=== PATIENT | male | born 1990 | race Hispanic/Latino ===

== ENCOUNTER 2018-10-02 14:51 | Inpatient (IN) | payer SELFPAY ==
[~2018-10-02 14:51] MED LIST: ISOVUE-370 76%-LOCM 1 ML ONE; Ondansetron PF 4 MG/2 ML Vial ONE; PROPOFOL 200 MG/20 ML VIAL ONE; Succinylcholine Chloride 20 MG/ML 10 ml SYRINGE FS ONE
--- NOTE | 2018-10-02 15:52 | RAD ---
CHEST ONE VIEW 10/02/18 HISTORY: Chest pain. COMPARISON: None. FINDINGS: Lungs are clear. No pneumothorax or effusion. The cardiac silhouette and mediastinal contours are nor mal. IMPRESSION: No acute intrathoracic abnormality. POS: [facility]
[2018-10-02 16:10] LABS: #Lymphocytes 3.6 thou/uL (1.20-3.40); #Monocytes 1.7 thou/uL (0.11-0.59); #Neutrophils 10.9 thou/uL (1.40-6.50); %Basophils 0.3 % (0.0-1.0); %Eosinophils 0.2 % (0.0-10.0); %Lymphocytes 22.2 % (21.0-51.0); %Monocytes 10.7 % (0.0-10.0); %Neutrophils 66.6 % (42.0-75.0); Mean Corpuscular HGB CONC 32.8 g/dL (32.0-36.0); Mean Corpuscular Hemoglobin 26.5 pg (27.0-31.0); Mean Corpuscular Volume 80.9 fL (78.0-98.0); Mean Platelet Volume 7.8 fL (7.4-10.4); Platelet Count 233 thou/uL (130-400); Red Blood Cell (RBC) Count 4.89 mill/uL (4.70-6.10); White Blood Cell (WBC) Count 16.3 thou/uL (4.8-10.8)
[2018-10-02] MEDS ORDERED: Ketorolac Tromethamine 30 MG/ML VIAL ONE (16:30)
--- NOTE | 2018-10-02 16:46 | CT ---
CONTRAST ENHANCED CT IMAGES ABDOMEN AND PELVIS 10/02/18 HISTORY: Fever, abdominal pain, urosepsis. Contrast enhanced CT images of the abdomen and pelvis is obtained. The lung bases are unremarkable. No evidence of free intraperitoneal air seen. There is hepatic steatosis seen. The gallbladder is unremarkable. Pancreas and adrenal glands unremarkable. The right kidney is unremarkable. The left kidney is markedly dilated with what appears to be congeni aj type UPJ obstruction. There is a cluster of large calculi in the posterior aspect of the renal pelvis. Three dimensional me asurements measure 11 x 13 x 21 mm. No evidence of obstructing renal calculi seen. The ureters are decompressed. No dilated loops of small bowel or colon seen. The urinary bladder is unremarkable. Multilevel lumbar congenitally short pedicles and facet hypertrophy is also present. This results in multilevel lumbar spinal stenosis. IMPRESSION: Marked left sided hydronephrosis. 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 POS: [facility]
[2018-10-02 17:52] LABS: Bilirubin Negative (Negative); Blood, Urine Moderate (Negative); Clarity CLOUDY (Clear); Glucose, Urine (Dipstick) Negative (Negative); Leukocyte Large (Negative); Nitrite Negative (Negative); Protein, Urine (Dipstick) 100 mg/dL (Neg-Trace); Specific Gravity, Urine 1.013 (1.002-1.036); Urobilinogen 0.2 mg/dL (0.2-1.0); pH, Urine 5.5 (5.0-9.0)
[2018-10-02 18:03] LABS: Bacteria/HPF 1+ HPF (None Seen); Hyaline Casts/LPF 0-3 HYALINE CAST LPF (0-3 Hyaline); RBC/HPF 0-3 HPF (0-3); Squamous Epithelial None Seen HPF (0-3); Yeast-AUWi Flag 4.4 (0-25.0)
[2018-10-02] MEDS ORDERED: Morphine 2 MG/ML SYRINGE SLOW IVP PRN (18:51)
[2018-10-02] MEDS ORDERED: Sodium Chloride 0.45% 1,000 ML IV SCH (19:00)
[2018-10-02] MEDS ORDERED: Piperacillin/Tazobactam 3.375 GM in Sodium Chloride 0.9% 100 ML IVPB SCH (20:00)
[2018-10-02 20:09] VITALS: BMI 37.8
[2018-10-02] MEDS ORDERED: Iothalamate Meglumine 60% 50 ML VIAL FS ONE (21:46)
[2018-10-02] MEDS ORDERED: Fentanyl 100 MCG/2 ML VIAL ONE (21:50)
--- NOTE | 2018-10-02 23:24 | RAD ---
INTRAOPERATIVE FLUOROSCOPY 10/02/18 HISTORY: Stent placement. FINDINGS: Twelve fluoroscopic views demonstrate placement of a left ureteral stent. IMPRESSION: Fluoroscopy as above. POS: [facility]
[2018-10-02] MEDS ORDERED: HYDROcodone/Acetaminophen 5/325 mg Tablet PO PRN (23:57)
[2018-10-03] MEDS: Sodium Chloride 0.9% 1,000 ML IV SCH ×2 (00:36→11:55)
--- NOTE | 2018-10-03 01:28 | OP ---
DATE OF PROCEDURE: 10/02/2018 PREOPERATIVE DIAGNOSES: Left ureteropelvic junction obstruction, urinary tract infection. POSTOPERATIVE DIAGNOSES: Left ureteropelvic junction obstruction, urinary tract infection. PROCEDURE PERFORMED: Cystoscopy, left double-J stent placement. ANESTHESIA: General. INDICATIONS FOR PROCEDURE: Mr. Sloan is a 28-year-old gentleman who presented with a 3-month history of intermittent fevers and body aches. He had an elevated white blood cell count of 16,000. Urinalysis demonstrated bacteria. 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 Because of the potential for left pyonephrosis, he was taken to the operating room for left renal drainage. DETAILS OF PROCEDURE: The patient was given general anesthesia and IV antibiotics, sterilely prepped and draped in lithotomy position. He had some meatal stenosis requiring dilation with sequential sounds prior to passage of the cystoscope. The cystoscope was passed into the bladder. The bladder was examined in its entirety. There were no mucosal lesions noted. The ureteral orifice appeared normal. A guidewire was passed to the left renal collecting system and then a Pollack catheter was passed over the guidewire. The guidewire was removed and over 300 mL was drained from his kidney by aspiration through the catheter. After this was completed, a guidewire was passed back up into the left kidney and the Pollack catheter was removed. A double-J stent was passed over the guidewire and coiled in the left renal pelvis cystoscopically and fluoroscopically. The patient tolerated the procedure well. The cystoscope was removed. String was left intact and taped to the dorsal aspect of the penis. He was transferred from the operating room to the recovery room in stable condition. COMPLICATIONS: None. ESTIMATED BLOOD LOSS: Minimal. PLAN: 1. Stent removal in approximately one week. 2. Two weeks of antibiotic therapy . Job ID: [id number]
--- NOTE | 2018-10-03 01:43 | CON ---
DATE OF CONSULTATION: 10/02/2018 REASON FOR CONSULTATION: Left hydronephrosis, urinary tract infection. HISTORY OF PRESENT ILLNESS: Mr. Sloan is a 28-year-old gentleman who was seen at an outside facility, noted to have a febrile UTI. He was transferred to [facility] for further care. On evaluation in the emergency room at [facility], a CT scan was performed. CT scan demonstrates a hydronephrotic right kidney consistent with a UPJ obstruction along with some lower pole stones. The kidney is quite hydronephrotic. The right side is normal. The ureters on both the right and left sides are normal. The patient has no prior urologic history. He denies any prior medical problems. He does state that he has had fevers off and on for the last three months. He will typically go three or four days without fever and then have fever for at least a day or so. When he has a fever, he also has joint aches and headaches. He denies a change in his bowel pattern. He states when he is febrile, his urine becomes darker and smells poorly. He has had some left-sided lower quadrant pain, but nothing severe. He finally presented today for evaluation into the medical facility. PAST MEDICAL HISTORY: No chronic medical problems. PAST SURGICAL HISTORY: None. MEDICATIONS: No chronic medications. ALLERGIES: NO KNOWN DRUG ALLERGIES. SOCIAL HISTORY: He does not smoke. He does not use drugs. He is not employed. He lives with his girlfriend and their two kids. He drinks alcohol occasionally and only on a social basis. REVIEW OF SYSTEMS: RESPIRATORY: No shortness of breath. CARDIOVASCULAR: Denies chest pain or palpitations. GASTROINTESTINAL: Denies chronic constipation, diarrhea. GENITOURINARY: Please see history of present illness. PHYSICAL EXAMINATION: VITAL SIGNS: Temperature 99.1, pulse 101, O2 saturation 99%, blood pressure 135/77. LABORATORY DATA: White count 16.3, hemoglobin 13.0, hematocrit 39.5, platelets 233. Urine demonstrates 1+ bacteria, moderate blood, and otm-kxzjxdml-vj-count white cells. Chemistry; sodium 135, potassium 3.8, chloride 100, CO2 22, BUN 12, creatinine 1.1, glucose 113, bilirubin 1.3. CT scan, marked left hydronephrosis with dilated renal pelvis. Normal ureter, left side. Right side, normal. Stones, lower pole of left kidney, approximately 1 cm in size. IMPRESSION: This patient has findings of a congenital left ureteropelvic junction obstruction. He has been completely asymptomatic throughout his life. He has now been having fevers off and on for a month. His urinalysis did suggest urinary tract infection. He has no localizing signs to the left flank, but the kidney should be drained in case there is infected urine there. This is only a short-term solution. Ultimately, he would require a surgical therapy for ureteropelvic junction reconstruction. With drainage some patients will do fine with the temporary stenting and certainly this is the treatment of choice at this time when he potentially has a urinary tract infection. PLAN: 1. Cystoscopy, left double-J stent placement. 2. Three weeks of culture-specific antibiotic therapy. Job ID: [id number]
[2018-10-03] MEDS: Piperacillin/Tazobactam 3.375 GM in Sodium Chloride 0.9% 100 ML IVPB SCH ×4 (02:10→20:27)
--- NOTE | 2018-10-03 04:17 | HP ---
CHIEF COMPLAINT: Fever. HISTORY OF PRESENT ILLNESS: Mr. Sloan is a 28-year-old male, who was initially seen in [facility], diagnosed with sepsis and sent to [facility] in [place] for further management. The patient reports fever for 2 months, occurs intermittently, usually 2 days on and 2 days off with throbbing headache in the back of his neck, 8/10, and malodorous dark urine. The patient denied any dysuria, cough, congestion, or sick contacts. When he arrived in [place], Dr. Hankins, ER physician ordered a CAT scan to further evaluate urinary symptoms, urosepsis, which showed right kidney unremarkable. Left kidney markedly dilated with what appears to be a congenital type UPJ obstruction, cluster of large calculi in the posterior aspect of the renal pelvis. Three dimensional measurements 11 x 13 x 21 mm. Impression was marked left-sided hydronephrosis, findings associated with left UPJ type chronic obstruction of the left collecting system and kidney. Urologist was contacted and reports that he would take patient to the OR for cystoscopy and placement of stent. The patient was given Rocephin in the outlying ER and Zosyn in this ED, and admitted to the observation unit for further management. PAST MEDICAL HISTORY: None. PAST SURGICAL HISTORY: None. PSYCH HISTORY: Denies. SOCIAL HISTORY: Drinks socially. Denies drug use. Denies smoking history. Lives at home with his family. ALLERGIES: NONE. CURRENT MEDICATIONS: None. REVIEW OF SYSTEMS: CONSTITUTIONAL: The patient denies chills. Reports fever. EYES: Denies any eye pain or vision changes. ENT: Denies rhinorrhea or sore throat. CARDIOVASCULAR: palpitations. RESPIRATORY: Denies cough or shortness of breath. GI: Denies abdominal pain. Denies nausea, vomiting, diarrhea, or constipation. : Reports a malodorous dark urine. Historian denies dysuria or hematuria. MUSCULOSKELETAL: Denies back pain, fall, injury, neck pain, skin rash, or skin changes. NEUROLOGIC: Does report a headache. PHYSICAL EXAMINATION: VITAL SIGNS: Blood pressure 142/82, pulse is 100, respirations 16, temp 99.3, pulse ox 97% on room air. CONSTITUTIONAL: The patient appears nontoxic. He is oriented to person, place, and time. HEENT: Head is atraumatic and normocephalic. Eyes, normal eyelid inspection. Pupils are equally round and reactive to light. ENT; mouth exam is normal. Mucous membranes are moist. NECK: Normal range of motion. No tenderness. RESPIRATORY/CHEST: Breath sounds are clear. No findings of respiratory distress. CARDIOVASCULAR: Regular heart rate and rhythm. Heart sounds are normal. ABDOMEN: Mild left lower quadrant pain on palpation. Bowel sounds are heard. No peritoneal signs. BACK: Normal inspection. Normal range of motion. No tenderness. EXTREMITIES: Upper extremity, normal inspection. Normal range of motion. Radial pulse equal bilaterally. Lower extremity, normal range of motion. Motor strength is normal. Pedal pulses equal bilaterally. NEURO: The patient is oriented to person, place, and time. Speech is normal. SKIN: Normal and dry in color. PSYCH: Normal affect. PERTINENT LABORATORY DATA: White blood cell count 16.3, hemoglobin 13, hematocrit 39.5, and platelet count 233. Urine positive for protein, blood, leukocyte esterase, greater than 50 white blood cell count, bacteria +1. Sodium 135, potassium 3.8, BUN is 12, gap is 17, creatinine 1.10, estimated GFR at 79, glucose 113, lactic acid 1.2. AST unremarkable. PLAN AND ASSESSMENT: 1. UPJ chronic obstruction, left-sided hydronephrosis. Dr. Donahue has been consulted. Plan for cystoscopy. 2. We will continue the Rocephin IV piggyback. 3. Leukocytosis, see above. 4. Deep venous thrombosis and gastrointestinal prophylaxis will be started. 5. Hospital course will be dependent on clinical findings. Job ID: [id number]
[2018-10-03 05:09] LABS: #Lymphocytes 2.7 thou/uL (1.20-3.40); #Monocytes 1.5 thou/uL (0.11-0.59); #Neutrophils 10.6 thou/uL (1.40-6.50); %Basophils 0.3 % (0.0-1.0); %Eosinophils 0.1 % (0.0-10.0); %Lymphocytes 18.4 % (21.0-51.0); %Monocytes 10.1 % (0.0-10.0); %Neutrophils 71.1 % (42.0-75.0); Hemoglobin 12.6 g/dL (14.0-18.0); Mean Corpuscular HGB CONC 33.1 g/dL (32.0-36.0); Mean Corpuscular Hemoglobin 26.5 pg (27.0-31.0); Mean Corpuscular Volume 80.2 fL (78.0-98.0); Mean Platelet Volume 7.6 fL (7.4-10.4); Platelet Count 223 thou/uL (130-400); RBC Distribution Width 12.8 % (11.5-14.5); Red Blood Cell (RBC) Count 4.77 mill/uL (4.70-6.10); White Blood Cell (WBC) Count 14.9 thou/uL (4.8-10.8)
[2018-10-03 05:27] LABS: ALT (SGPT) 41 U/L (8-55); AST (SGOT) 26 U/L (5-34); Albumin 3.7 g/dL (3.5-5.0); Alkaline Phosphatase 50 U/L (40-150); Anion Gap 15 mmol/L (10-20); BUN (Urea Nitrogen) 13 mg/dL (8.9-20.6); Bilirubin, Total 1.2 mg/dL (0.2-1.2); Calc. Creatinine Clearance 174 mL/min (70-130); Calcium 8.8 mg/dL (7.8-10.44); Carbon Dioxide 20 mmol/L (22-29); Chloride 104 mmol/L (98-107); Estimated GFR-MDRD 83; Globulin 4.1 g/dL (2.4-3.5); Glucose 104 mg/dL (70-105); Protein, Total 7.8 g/dL (6.0-8.3); Sodium 135 mmol/L (136-145)
--- NOTE | 2018-10-03 16:02 | PDOC.PN ---
- Subjective Encounter Start Date: 10/03/18 Encounter Start Time: 16:00 Patient lying in bed, he reports feeling better, pain improved, but still having fevers with slight tachycardia. He denies chest pain, shortness of breath , n/v/d. - Objective MAR Reviewed: Yes Vital Signs & Weight: Vital Signs (12 hours) Temp Pulse Resp BP Pulse Ox 10/03/18 14:30 99.8 F H 109 H 18 111/74 94 L 10/03/18 11:10 100.2 F H 107 H 22 H 135/102 H 97 10/03/18 07:09 98.1 F 106 H 15 136/84 97 Weight Weight 263 lb 8 oz I&O: 10/02/18 10/03/18 10/04/18 06:59 06:59 06:59 Intake Total 1538 Output Total 750 650 Balance 788 -650 Result Diagrams: 10/03/18 04:57 10/03/18 04:57 Radiology Reviewed by me: Yes Phys Exam - Physical Examination Constitutional: NAD HEENT: PERRLA, moist MMs, oral pharynx no lesions Neck: no nodes, no JVD, supple Respiratory: no wheezing, clear to auscultation bilateral Cardiovascular: RRR, no significant murmur Gastrointestinal: soft, no distention, positive bowel sounds Musculoskeletal: no edema, pulses present Neurological: non-focal, moves all 4 limbs Lymphatic: no nodes Psychiatric: normal affect, A&O x 3 Skin: no rash, cap refill <2 seconds Dx/Plan (1) Hydronephrosis Code(s): N13.30 - UNSPECIFIED HYDRONEPHROSIS Status: Acute (2) UTI (urinary tract infection) Status: Acute (3) Sepsis Code(s): A41.9 - SEPSIS, UNSPECIFIED ORGANISM Status: Acute - Plan cont current plan of care, continue antibiotics * Continue IV abx at this time, await culture results * Patient continuing to have fevers with tachycardia and elevated white count * Pain management * Monitor vitals, bmp and CBC * Tylenol for fevers
[2018-10-03] MEDS ORDERED: Acetaminophen 325 MG TAB PO PRN (16:03)
[2018-10-04] MEDS: Sodium Chloride 0.9% 1,000 ML IV SCH ×4 (00:02→19:02)
[2018-10-04] MEDS: Piperacillin/Tazobactam 3.375 GM in Sodium Chloride 0.9% 100 ML IVPB SCH ×4 (02:02→20:13)
[2018-10-04 08:26] LABS: #Basophils 0.1 thou/uL (0.0-0.2); #Eosinphils 0.1 thou/uL (0.0-0.7); #Lymphocytes 2.9 thou/uL (1.20-3.40); #Neutrophils 9.8 thou/uL (1.40-6.50); %Basophils 0.4 % (0.0-1.0); %Eosinophils 0.9 % (0.0-10.0); %Lymphocytes 20.8 % (21.0-51.0); %Monocytes 7.1 % (0.0-10.0); %Neutrophils 70.8 % (42.0-75.0); Hemoglobin 12.8 g/dL (14.0-18.0); Mean Corpuscular HGB CONC 31.8 g/dL (32.0-36.0); Mean Corpuscular Hemoglobin 24.9 pg (27.0-31.0); Mean Corpuscular Volume 78.2 fL (78.0-98.0); Platelet Count 287 thou/uL (130-400); RBC Distribution Width 12.8 % (11.5-14.5); Red Blood Cell (RBC) Count 5.16 mill/uL (4.70-6.10); White Blood Cell (WBC) Count 13.9 thou/uL (4.8-10.8)
[2018-10-04 08:51] LABS: ALT (SGPT) 76 U/L (8-55); AST (SGOT) 42 U/L (5-34); Alkaline Phosphatase 57 U/L (40-150); Anion Gap 13 mmol/L (10-20); BUN (Urea Nitrogen) 11 mg/dL (8.9-20.6); Bilirubin, Total 0.9 mg/dL (0.2-1.2); Calc. Creatinine Clearance 207 mL/min (70-130); Calcium 9.4 mg/dL (7.8-10.44); Carbon Dioxide 23 mmol/L (22-29); Chloride 103 mmol/L (98-107); Estimated GFR-MDRD Greater than 90; Globulin 4.7 g/dL (2.4-3.5); Glucose 105 mg/dL (70-105); Potassium 3.7 mmol/L (3.5-5.1); Protein, Total 8.7 g/dL (6.0-8.3); Sodium 135 mmol/L (136-145)
--- NOTE | 2018-10-04 16:22 | PDOC.PN ---
- Subjective Encounter Start Date: 10/04/18 Encounter Start Time: 16:21 Patient lying in bed, he denies chest pain, shortness of breath. He continues on IV zosyn and tolerating well. - Objective MAR Reviewed: Yes Vital Signs & Weight: Vital Signs (12 hours) Temp Pulse Resp BP Pulse Ox 10/04/18 12:32 98.5 F 87 18 146/88 H 96 10/04/18 08:00 97 10/04/18 07:53 98.2 F 102 H 18 130/91 H 97 Weight Weight 263 lb 8 oz I&O: 10/03/18 10/04/18 10/05/18 06:59 06:59 07:59 Intake Total 1538 1778 Output Total 750 650 Balance 788 1128 Result Diagrams: 10/04/18 07:57 10/04/18 07:57 Radiology Reviewed by me: Yes Phys Exam - Physical Examination Constitutional: NAD HEENT: PERRLA, moist MMs, oral pharynx no lesions Neck: no nodes, supple Respiratory: no wheezing, clear to auscultation bilateral Cardiovascular: RRR, no significant murmur Gastrointestinal: soft, non-tender, positive bowel sounds Musculoskeletal: no edema, pulses present Neurological: non-focal, moves all 4 limbs Lymphatic: no nodes Psychiatric: normal affect, A&O x 3 Skin: no rash, cap refill <2 seconds Dx/Plan (1) Hydronephrosis Code(s): N13.30 - UNSPECIFIED HYDRONEPHROSIS Status: Acute (2) UTI (urinary tract infection) Status: Acute (3) Sepsis Code(s): A41.9 - SEPSIS, UNSPECIFIED ORGANISM Status: Acute - Plan cont current plan of care, continue antibiotics * Patient febrile last night, whit e count trending down 13.9 * Continue IV zosyn * Urine cultures showing e coli * Monitor vitals and labs, recheck CBC in am * If patient remains afebrile for 24 hours may be discharged home on oral abx
[2018-10-05] MEDS: Piperacillin/Tazobactam 3.375 GM in Sodium Chloride 0.9% 100 ML IVPB SCH ×2 (01:21→08:35)
[2018-10-05] MEDS: Sodium Chloride 0.9% 1,000 ML IV SCH ×2 (01:24→12:05)
[2018-10-05 06:40] LABS: #Basophils 0.1 thou/uL (0.0-0.2); #Eosinphils 0.4 thou/uL (0.0-0.7); #Lymphocytes 3.6 thou/uL (1.20-3.40); #Monocytes 0.8 thou/uL (0.11-0.59); #Neutrophils 5.6 thou/uL (1.40-6.50); %Basophils 0.7 % (0.0-1.0); %Eosinophils 3.6 % (0.0-10.0); %Lymphocytes 34.5 % (21.0-51.0); %Monocytes 7.4 % (0.0-10.0); %Neutrophils 53.8 % (42.0-75.0); Hemoglobin 13.2 g/dL (14.0-18.0); Mean Corpuscular HGB CONC 31.5 g/dL (32.0-36.0); Mean Corpuscular Hemoglobin 24.9 pg (27.0-31.0); Platelet Count 310 thou/uL (130-400); Red Blood Cell (RBC) Count 5.31 mill/uL (4.70-6.10); White Blood Cell (WBC) Count 10.4 thou/uL (4.8-10.8)
[2018-10-05 08:03] VITALS: BP 132/80; TEMP 98.3
--- NOTE | 2018-10-05 09:42 | PDOC.EVN ---
Event Note - Event Note Event Note: Reviewed the case with Ronald. Reviewed the record and examined patient. 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 He has had a temporary stent placed. Urine cultures grew E. coli and blood cultures are negative. Sensitive to quinolones. He currently has no overt pain and very minimal TTP in the LLQ. VS normal. OK to DC with oral quinolone and follow up with Urology to have stent removed in 5-7 days. He will need to stay on abx until well after the stent is removed. Also discussed his hepatic steatosis and liver enzymes. He was encouraged to modify his diet and lose weight.
[2018-10-05] MEDS ORDERED: Ciprofloxacin 500 MG TAB PO SCH (20:00)
== END 2018-10-05 12:49 | disposition home or self-care (01) | DRG 854 ==
LOC: ERS 14:51 → T4-B 18:32 → OBSVTOIN 18:41 → 2SW 18:41 → T4-B 10-03 14:39
PROVIDERS: ADMIT Emergency Medicine; ATTEND Emergency Medicine
PROC: 0T748DZ Dilation of Left Kidney Pelvis with Intraluminal Device, Via Natural or Artificial Opening Endoscopic (ICD-10-PCS; principal; 2018-10-02)
DX: A41.9 Sepsis, unspecified organism (principal); N13.6 Pyonephrosis; N39.0 Urinary tract infection, site not specified
CPT/HCPCS: 36415; 71045; 74018; 74177; 80053; 85025; 87070; 87077; 87086; 87186; 87205; 96374; C1758; C1769; J1885; J2405; J2543; J2704; J3010; J7050; Q9961; Q9966

== ENCOUNTER 2019-11-26 11:39 | Inpatient (IN) | payer SELFPAY ==
[~2019-11-26 11:39] MED LIST changes: +Dexamethasone 20 MG/5 ML VIAL ONE; -ISOVUE-370 76%-LOCM 1 ML ONE; +Lidocaine 1% PF 5 ML VIAL ONE; +Metoclopramide HCl 10 MG/2 ML VIAL ONE
[2019-11-26] MEDS ORDERED: Acetaminophen 500 MG TAB ONE (12:58)
[2019-11-26] MEDS ORDERED: Ibuprofen 200 MG TAB ONE (12:58)
[2019-11-26] MEDS ORDERED: cefTRIAXone\\ROCEPHIN 2 GM VIAL ONE (12:58)
--- NOTE | 2019-11-26 13:08 | RAD ---
EXAM: CHEST ONE VIEW HISTORY: Fever and generalized body aches COMPARISON: 10/02/2018 FINDINGS: The cardiac silhouette and pulmonary vasculature is within normal limits. The lungs are clear. The os seous structures are intact. No interval change from prior study. IMPRESSION: No acute cardiopulmonary process.
[2019-11-26 13:13] LABS: Hemoglobin 15.5 g/dL (14.0-18.0); Mean Corpuscular HGB CONC 31.8 g/dL (32.0-36.0); Mean Corpuscular Hemoglobin 25.7 pg (27.0-31.0); Mean Corpuscular Volume 80.8 fL (78.0-98.0); Mean Platelet Volume 8.4 fL (7.4-10.4); Platelet Count 209 thou/uL (130-400); RBC Distribution Width 12.8 % (11.5-14.5); Red Blood Cell (RBC) Count 6.02 mill/uL (4.70-6.10); White Blood Cell (WBC) Count 20.4 thou/uL (4.8-10.8)
[2019-11-26 13:35] LABS: Band 6 % (5-11); Lymphocytes 21 % (21-51); MDiff Complete? YES; Monocytes 3 % (0-10); Neutrophil 68 % (42-75); Platelet Morphology Comment Appears Adequate; RBC Morphology Normal; Reactive Lymphocytes 1 % (0-10)
[2019-11-26 13:36] LABS: Bilirubin Negative (Negative); Blood, Urine 2+ (Negative); Clarity Extra Turbid (Clear); Glucose, Urine (Dipstick) Normal (Negative); Leukocyte 500 Leu/uL (Negative); Nitrite Negative (Negative); Protein, Urine (Dipstick) 200 mg/dL (Neg-Trace); RBC/HPF Greater than 50 HPF (0-3); Squamous Epithelial None Seen HPF (0-3); Urobilinogen Normal mg/dL (Less than 2); WBC/HPF Greater than 50 HPF (0-3)
[2019-11-26 13:39] LABS: Bacteria/HPF 4+ HPF (None Seen)
[2019-11-26 13:39] LABS: Albumin 4.6 g/dL (3.5-5.0); Anion Gap 15 mmol/L (10-20); BUN (Urea Nitrogen) 14 mg/dL (8.9-20.6); Bilirubin, Total 1.6 mg/dL (0.2-1.2); Calc. Creatinine Clearance 0 mL/min (70-130); Calcium 9.7 mg/dL (7.8-10.44); Carbon Dioxide 21 mmol/L (22-29); Chloride 99 mmol/L (98-107); Estimated GFR-MDRD 60; Glucose 103 mg/dL (70-105); Potassium 3.3 mmol/L (3.5-5.1); Sodium 132 mmol/L (136-145)
[2019-11-26 13:40] LABS: ALT (SGPT) 43 U/L (8-55); AST (SGOT) 21 U/L (5-34); Alkaline Phosphatase 48 U/L (40-110); Globulin 4.4 g/dL (2.4-3.5)
--- NOTE | 2019-11-26 14:30 | CT ---
ABDOMEN CT WITHOUT CONTRAST PELVIC CT WITHOUT CONTRAST: HISTORY: Fever. Generalized body aches. COMPARISON: 10/02/2018. FINDINGS: Abdomen CT: Lung bases:No acute abnormality Heart size: Normal heart size. No significant pericardial fluid. Aorta: Normal caliber. No periaortic fat stranding. Solid organs: Limited evaluation of the solid organs by the lack of IV contrast. Diffuse hypoattenuat ion of the liver due to hepatic steatosis. Lymph nodes: No gastrohepatic, retrocrural or periportal lymphadenopathy. Gallbladder: No acute abnormality. Mesentery: No mass, lymphadenopathy, free air or free fluid. Kidneys: No evidence of right sided obstructive uropathy. Stable marked dilatation of the left renal pelvis. There is left renal cortical thinning. There are nonobstructing calculi in the lower pole of the left kidney. The conglomeration of these calculi measures 2.9 cm in craniocaudal dimension. Th ere is abrupt caliber change at the left ureteropelvic junction. No associated mass or calcification. The abrupt caliber change and the overall degree of left-sided hydronephrosis is simil ar to the previous CT. Left ureter is decompressed. Alimentary canal: Limited evaluation by the lack of oral contrast. Multiple normal caliber small florencia l loops. Ileocecal junction is normal. Normal caliber appendix. Scattered fecal material in a nondistended, nondilated colon. CT PELVIS: No mass, adenopathy, free air or free fluid. Urinary bladder: No calculi. Osseous structures: No lytic or blastic lesions. IMPRESSION: Stable severe left-sided hydronephrosis with abrupt caliber change at the left ureteropelvic junction . No evidence of associated calculus or mass. Transcribed Date/Time: 11/26/2019 3:31 PM
[2019-11-26] MEDS ORDERED: Ondansetron PF 4 MG/2 ML Vial ONE (15:01)
[2019-11-26] MEDS ORDERED: Ketorolac Tromethamine 30 MG/ML VIAL ONE (15:19)
--- NOTE | 2019-11-26 15:40 | PDOC.HHP ---
Hospitalist HPI - History of Present Illness blood in the urine, fever, chills, back pain History of Present Illness: 29yo M w/ Mhx of left UPJ obstruction s/p stent placement and removal and culture-specific antibiotic treatment that was completed who presented for left flank pain, fever, chills, and blood in the urine. Patient had similar presentation in the beginning of september, then he was placed a stent and treated with antibiotics tailored for cultured E. coli. Stent was removed, and initially did well. This morning, went to his PCP with abovementioned complaints and was sent to the ED On encounter, laying comfortably in bed and endorses abovementioned symptoms but feeling better since arrival at ED. 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 2L NS, ABx, Dr. Benedict was consulted and patient is pending surgical intervention Hospitalist ROS - Review of Systems Constitutional: reports: fever, sweats Respiratory: denies: cough, dry, shortness of breath, hemoptysis, SOB with excertion, pleuritic pain, sputum, wheezing, other Cardiovascular: denies: chest pain, palpitations, orthopnea, paroxysmal noc. dyspnea, edema, light headedness, other Gastrointestinal: denies: nausea, vomiting, abdominal pain, diarrhea, constipation, melena, hematochezia, other Musculoskeletal: reports: back pain Skin: denies: rash, lesions, anabel, bruising, other Neurological: denies: weakness, numbness, incoordination, change in speech, confusion, seizures, other Hospitalist History - Past Medical History Source: patient Cardiac: reports: no pertinent history Pulmonary: reports: no pertinent history [employer]: reports: no pertinent history Gastrointestinal: reports: no pertinent history Heme/Onc: reports: no pertinent history Hepatobiliary: reports: no pertinent history Psych: reports: no pertinent history Musculoskeletal: reports: no pertinent history Rheumatologic: reports: no pertinent history Infectious Disease: reports: no pertinent history ENT: reports: no pertinent history Renal/: reports: Acute renal failure, UTI, Hematuria, Other (renal calculi and left hydronephrosis) - Past Surgical History Other Surgical History: right ureteral stent placement (09/2019) - Family History Family History: reports: no pertinent history - Social History Smoking Status: Never smoker Alcohol: reports: None Drugs: reports: none Living Situation: With Family Activity level: independent ambulation - Exam General Appearance: NAD, awake alert General - other findings: midly drowsy Heart: no murmur, no gallops, no rubs Heart - other findings: tachycardic 100, sinus on telemetry single lead Respiratory: CTAB, no wheezes, no rales, no ronchi, normal chest expansion, no tachypnea, normal percussion Gastrointestinal: soft, non-distended, normal bowel sounds Gastrointestinal - other findings: right sided tenderness, right costovertebral tenderness Extremities: no edema Neurological: cranial nerve grossly intact Psychiatric: normal affect, normal behavior, A&O x 3 Hospitalist Results - Labs Result Diagrams: 11/26/19 13:02 11/26/19 13:02 Lab results: WBC 20.4 thou/uL (4.8-10.8) H 11/26/19 13:02 Hgb 15.5 g/dL (14.0-18.0) 11/26/19 13:02 Hct 48.6 % (42.0-52.0) 11/26/19 13:02 MCV 80.8 fL (78.0-98.0) 11/26/19 13:02 Plt Count 209 thou/uL (130-400) 11/26/19 13:02 Band Neuts % (Manual) 6 % (5-11) 11/26/19 13:02 Sodium 132 mmol/L (136-145) L 11/26/19 13:02 Potassium 3.3 mmol/L (3.5-5.1) L 11/26/19 13:02 Chloride 99 mmol/L (98-107) 11/26/19 13:02 Carbon Dioxide 21 mmol/L (22-29) L 11/26/19 13:02 BUN 14 mg/dL (8.9-20.6) 11/26/19 13:02 Creatinine 1.39 mg/dL (0.7-1.3) H 11/26/19 13:02 Glucose 103 mg/dL (70-105) 11/26/19 13:02 Lactic Acid 2.6 mmol/L (0.5-2.2) H 11/26/19 13:02 Calcium 9.7 mg/dL (7.8-10.44) 11/26/19 13:02 Total Bilirubin 1.6 mg/dL (0.2-1.2) H 11/26/19 13:02 AST 21 U/L (5-34) 11/26/19 13:02 ALT 43 U/L (8-55) 11/26/19 13:02 Alkaline Phosphatase 48 U/L (40-110) 11/26/19 13:02 Serum Total Protein 9.0 g/dL (6.0-8.3) H 11/26/19 13:02 Albumin 4.6 g/dL (3.5-5.0) 11/26/19 13:02 Urine Ketones Negative mg/dL (Negative) 11/26/19 13:10 Urine Blood 2+ (Negative) A 11/26/19 13:10 Urine Nitrite Negative (Negative) 11/26/19 13:10 Ur Leukocyte Esterase 500 Conchita/uL (Negative) A 11/26/19 13:10 Urine RBC Greater than 50 HPF (0-3) A 11/26/19 13:10 Urine WBC Greater than 50 HPF (0-3) A 11/26/19 13:10 Ur Squamous Epith Cells None Seen HPF (0-3) 11/26/19 13:10 Urine Bacteria 4+ HPF (None Seen) A 11/26/19 13:10 - Radiology Interpretation CT scan - abdomen Status: report reviewed by ga Hospitalist H&P A/P - Problem (1) Sepsis Code(s): A41.9 - SEPSIS, UNSPECIFIED ORGANISM Status: Acute (2) Hydronephrosis Code(s): N13.30 - UNSPECIFIED HYDRONEPHROSIS Status: Acute (3) Renal calculi Status: Acute (4) UTI (urinary tract infection) Status: Acute - Plan Plan: #left renal calculi #left UPJ obstruction #Sepsis due to complicated UTI -qSOFA 2/3 (RR and BP) -responded to fluids -started on cetriaxone and vancomycin -previously culture grew E.coli susceptible to zosyn -considering obstruction, sepsis will start on meropenem and vanc pending cultures -pending surgical intervention by urology -give another 1L bolus NS; 100cc/hr NS maintenance, match I/O Dispo/PPx full code DVT PPx: no indication GI PPx: no indication
[2019-11-26] MEDS ORDERED: Sodium Chloride 0.9% 1,000 ML IV ONE (15:42)
[2019-11-26] MEDS ORDERED: Fentanyl 100 MCG/2 ML VIAL ONE (17:20)
[2019-11-26] MEDS ORDERED: Midazolam HCl 2 mg/2 ml Vial ONE (17:20)
[2019-11-26] MEDS ORDERED: Iothalamate Meglumine 60% 30 ML VIAL FS ONE (17:35)
[2019-11-26] MEDS ORDERED: Promethazine HCl 25 MG/ML VIAL SLOW IVP PRN (18:17)
[2019-11-26] MEDS ORDERED: Ondansetron HCl/PF 4 MG/2 ML Vial IVP PRN (18:17)
[2019-11-26] MEDS ORDERED: PACU-Morphine 4MG/ML VIAL SLOW IVP PRN (18:17)
[2019-11-26] MEDS ORDERED: Promethazine HCl 25 MG/ML VIAL IM PRN (18:17)
[2019-11-26] MEDS: Sodium Chloride 0.9% 1,000 ML IV SCH (19:55)
[2019-11-26] MEDS ORDERED: HYDROcodone/Acetaminophen 10/325 mg Tablet PO PRN (20:06)
[2019-11-26] MEDS ORDERED: Ondansetron ODT 4 MG TAB PO PRN (20:06)
[2019-11-26] MEDS ORDERED: Ondansetron PF 4 MG/2 ML Vial IVP PRN (20:06)
[2019-11-26 22:11] VITALS: BMI 35.2
[2019-11-26] MEDS: MEROPENEM 1 GM/50 ML 1 GM in Premix Bag 1 BAG IVPB SCH (22:50)
[2019-11-27] MEDS: Vancomycin 1 GM in Premix Bag 1 BAG IVPB SCH ×2 (01:02→13:08)
[2019-11-27 04:58] LABS: #Lymphocytes 1.7 thou/uL (1.20-3.40); #Monocytes 0.8 thou/uL (0.11-0.59); #Neutrophils 14.8 thou/uL (1.40-6.50); %Basophils 0.1 % (0.0-1.0); %Lymphocytes 9.6 % (21.0-51.0); %Monocytes 4.5 % (0.0-10.0); %Neutrophils 85.8 % (42.0-75.0); Hemoglobin 13.1 g/dL (14.0-18.0); Mean Corpuscular HGB CONC 31.3 g/dL (32.0-36.0); Mean Corpuscular Hemoglobin 25.4 pg (27.0-31.0); Mean Corpuscular Volume 81.1 fL (78.0-98.0); Mean Platelet Volume 8.7 fL (7.4-10.4); Platelet Count 191 thou/uL (130-400); RBC Distribution Width 12.8 % (11.5-14.5); Red Blood Cell (RBC) Count 5.17 mill/uL (4.70-6.10); White Blood Cell (WBC) Count 17.3 thou/uL (4.8-10.8)
[2019-11-27 05:19] LABS: Anion Gap 13 mmol/L (10-20); BUN (Urea Nitrogen) 16 mg/dL (8.9-20.6); Calc. Creatinine Clearance 174 mL/min (70-130); Calcium 8.9 mg/dL (7.8-10.44); Carbon Dioxide 21 mmol/L (22-29); Chloride 107 mmol/L (98-107); Estimated GFR-MDRD 85; Glucose 140 mg/dL (70-105); Potassium 3.9 mmol/L (3.5-5.1); Sodium 137 mmol/L (136-145)
[2019-11-27] MEDS: MEROPENEM 1 GM/50 ML 1 GM in Premix Bag 1 BAG IVPB SCH ×3 (05:25→22:19)
--- NOTE | 2019-11-27 06:24 | OP ---
DATE OF PROCEDURE: 11/26/2019 PREOPERATIVE DIAGNOSES: Left ureteropelvic junction obstruction, urinary tract infection. POSTOPERATIVE DIAGNOSES: Left ureteropelvic junction obstruction, urinary tract infection, phimosis and urethral meatal stenosis. PROCEDURES PERFORMED: Cystoscopy, dilation of urethral meatus, left double-J stent placement. ANESTHESIA: General. INDICATIONS: Mr. Sloan is a 29-year-old gentleman, who has findings on imaging consistent with a left UPJ obstruction. He presented one year ago with similar complaints of fever, left flank pain, and similar findings on CT scan. He was managed with a stent then. He recovered well and did well until recently when he redeveloped fever and flank pain. Repeat imaging demonstrates left hydronephrosis, left renal stone, and normal-caliber ureter suggesting UPJ obstruction. DESCRIPTION OF PROCEDURE: The patient was given general anesthesia. He was also given IV antibiotics in the emergency room including vancomycin and ceftriaxone. He was sterilely prepped and draped in the lithotomy position. The cystoscope was passed in the bladder after dilation of the urethral meatus with sequential sounds. He had a foul smelling urine in the bladder. The left ureteral orifice was intubated with a floppy tip guidewire, which was passed cephalad under fluoroscopic control. An open-ended ureteral catheter was passed over the guidewire into the left renal pelvis. Several 100 mL of urine were drained from the pelvis. The guidewire was passed back through the open-ended ureteral catheter, and then, a 6 x 28 double-J stent was passed over the guidewire and coiled in the left renal pelvis and in the bladder as determined fluoroscopically and cystoscopically. The bladder was drained. The cystoscope was removed, and the strings were left intact and taped to the dorsal aspect of the penis. The patient tolerated the procedure well. He was transported from the operating room to the recovery room in stable condition. COMPLICATION: None. ESTIMATED BLOOD LOSS: Minimal. Job ID: [id number]
[2019-11-27] MEDS: Sodium Chloride 0.9% 1,000 ML IV SCH ×2 (06:35→17:34)
--- NOTE | 2019-11-27 12:40 | PDOC.HOSPP ---
- Subjective Encounter Date: 11/27/19 Encounter Time: 09:00 Subjective: overnight, underwent UPV dilation and stent placement. this morning, pain resolved and has no complaints. DC pending urine culture to tailor antibiotic - Objective Vital Signs & Weight: Vital Signs (12 hours) Temp Pulse Resp BP Pulse Ox 11/27/19 11:40 98.3 F 92 16 138/90 96 11/27/19 09:30 98.4 F 83 18 119/77 97 11/27/19 03:20 97.7 F 72 18 128/84 96 Weight Weight 259 lb 4.8 oz I&O: 11/26/19 11/27/19 11/28/19 06:59 06:59 06:59 Intake Total 1160 Output Total 700 Balance 460 Result Diagrams: 11/27/19 04:39 11/27/19 04:39 Hospitalist ROS - Review of Systems Constitutional: denies: fever, chills, sweats, weakness, malaise, other Respiratory: denies: cough, dry, shortness of breath, hemoptysis, SOB with excertion, pleuritic pain, sputum, wheezing, other Cardiovascular: denies: chest pain, palpitations, orthopnea, paroxysmal noc. dyspnea, edema, light headedness, other Gastrointestinal: denies: nausea, vomiting, abdominal pain, diarrhea, constipation, melena, hematochezia, other Genitourinary: denies: dysuria, frequency, incontinence, hematuria, retention, other - Medication Medications: Active Medications Generic Name Dose Route Start Last Admin Trade Name Freq PRN Reason Stop Dose Admin Meropenem 1 gm/ Device 50 mls @ 100 mls/hr 11/26/19 22:00 11/27/19 05:25 IVPB 50 mls Q8HR ARVIND Administration Vancomycin HCl 1 gm/ Device 200 mls @ 200 mls/hr 11/27/19 02:00 11/27/19 01: 02 IVPB 200 mls 0200,1400 ARVIND Administration Sodium Chloride 1,000 mls @ 100 mls/hr 11/26/19 20:06 11/27/19 06:35 Normal Saline 0.9% IV 1,000 mls .Q10H ARVIND Administration - Exam General Appearance: NAD, awake alert Eye: PERRL, anicteric sclera Neck: supple, symmetric, no JVD, no thyromegaly, no lymphadenopathy, no carotid bruit Heart: RRR, no murmur, no gallops, no rubs, normal peripheral pulses Respiratory: CTAB, no wheezes, no rales, no ronchi, normal chest expansion, no tachypnea, normal percussion Gastrointestinal: soft, non-tender, non-distended, normal bowel sounds, no palpable masses, no hepatomegaly, no splenomegaly, no bruit Hosp A/P (1) Sepsis Code(s): A41.9 - SEPSIS, UNSPECIFIED ORGANISM Status: Acute (2) Hydronephrosis Code(s): N13.30 - UNSPECIFIED HYDRONEPHROSIS Status: Acute (3) Renal calculi Status: Acute (4) UTI (urinary tract infection) Status: Acute - Plan -HD stable, breathing and satting well on RA; sepsis resolved -Left UPJ obstruction: POD 1 s/p dilation and stent placement -complicated UTI: on suraj and vanc. once culture results back, transition to oral and discharge home
[2019-11-28] MEDS: Vancomycin 1 GM in Premix Bag 1 BAG IVPB SCH ×2 (02:25→14:22)
[2019-11-28] MEDS: Sodium Chloride 0.9% 1,000 ML IV SCH ×2 (02:32→05:00)
[2019-11-28] MEDS: MEROPENEM 1 GM/50 ML 1 GM in Premix Bag 1 BAG IVPB SCH ×2 (05:00→14:22)
[2019-11-28 07:58] LABS: #Basophils 0.1 thou/uL (0.0-0.2); #Lymphocytes 3.6 thou/uL (1.20-3.40); #Monocytes 1.2 thou/uL (0.11-0.59); #Neutrophils 12.3 thou/uL (1.40-6.50); %Basophils 0.8 % (0.0-1.0); %Eosinophils 0.3 % (0.0-10.0); %Monocytes 6.7 % (0.0-10.0); %Neutrophils 71.2 % (42.0-75.0); Hemoglobin 13.1 g/dL (14.0-18.0); Mean Corpuscular HGB CONC 33.7 g/dL (32.0-36.0); Mean Corpuscular Hemoglobin 26.9 pg (27.0-31.0); Mean Platelet Volume 8.8 fL (7.4-10.4); Platelet Count 212 thou/uL (130-400); RBC Distribution Width 12.6 % (11.5-14.5); Red Blood Cell (RBC) Count 4.85 mill/uL (4.70-6.10); White Blood Cell (WBC) Count 17.2 thou/uL (4.8-10.8)
[2019-11-28 08:13] LABS: Anion Gap 11 mmol/L (10-20); BUN (Urea Nitrogen) 15 mg/dL (8.9-20.6); Calc. Creatinine Clearance 209 mL/min (70-130); Calcium 8.7 mg/dL (7.8-10.44); Carbon Dioxide 23 mmol/L (22-29); Chloride 109 mmol/L (98-107); Estimated GFR-MDRD Greater than 90; Glucose 97 mg/dL (70-105); Potassium 3.7 mmol/L (3.5-5.1); Sodium 139 mmol/L (136-145)
--- NOTE | 2019-11-28 10:41 | PDOC.HOSPP ---
- Subjective Encounter Date: 11/28/19 (f/u complicated UTI) Encounter Time: 10:38 Subjective: Pt without complaints. Notes mild discomfort in the left flank when he stands to urinate. He denies any difficulty with urination. Denies n/v/abd pain/ diarrhea. - Objective Vital Signs & Weight: Vital Signs (12 hours) Temp Pulse Resp BP Pulse Ox 11/28/19 07:20 98.1 F 77 14 131/85 97 11/28/19 03:37 98.2 F 75 16 135/87 95 11/28/19 00:09 98.3 F 78 16 136/83 97 Weight Weight 259 lb 4.8 oz I&O: 11/27/19 11/28/19 11/29/19 06:59 06:59 06:59 Intake Total 1160 2025 1440 Output Total 700 1450 550 Balance 460 575 890 Result Diagrams: 11/28/19 07:40 11/28/19 07:40 Hospitalist ROS - Medication Medications: Active Medications Generic Name Dose Route Start Last Admin Trade Name Freq PRN Reason Stop Dose Admin Meropenem 1 gm/ Device 50 mls @ 100 mls/hr 11/26/19 22:00 11/28/19 05:00 IVPB 50 mls Q8HR ARVIND Administration Vancomycin HCl 1 gm/ Device 200 mls @ 200 mls/hr 11/27/19 02:00 11/28/19 02: 25 IVPB 200 mls 0200,1400 ARVIND Administration Sodium Chloride 1,000 mls @ 100 mls/hr 11/26/19 20:06 11/28/19 05:00 Normal Saline 0.9% IV 1,000 mls .Q10H ARVIND Administration - Exam General Appearance: NAD Heart: RRR, no murmur Respiratory: CTAB, no wheezes, no rales, no ronchi Gastrointestinal: soft, non-tender, non-distended, normal bowel sounds Extremities: no cyanosis, no clubbing, no edema Skin: normal turgor Psychiatric: normal affect Hosp A/P (1) Pyelonephritis Code(s): N12 - TUBULO-INTERSTITIAL NEPHRITIS, NOT SPCF ACUTE OR CHRONIC Status: Acute (2) UTI (urinary tract infection) Status: Acute Qualifiers: Urinary tract infection type: acute pyelonephritis Qualified Code(s): N10 - Acute pyelonephritis (3) Renal calculi Status: Acute (4) Hydronephrosis Code(s): N13.30 - UNSPECIFIED HYDRONEPHROSIS Status: Acute Qualifiers: Hydronephrosis type: with renal calculous obstruction Qualified Code(s): N13.2 - Hydronephrosis with renal and ureteral calculous obstruction (5) WESLEY (acute kidney injury) Code(s): N17.9 - ACUTE KIDNEY FAILURE, UNSPECIFIED Status: Resolved - Plan Urology - Dr. Donahue - s/p stent placement and dilation of urethral meatus Urine culture - mixed. Reviewed prior culture from September 2018 -MDR E Coli with bacteremia. - given mixed growth, pt with stent, hx of bacteremia with similar presentation , consult placed to Dr. Horne/ID for recommendations on abx - continue Meropenem and Vanc for now until abx recommendations obtained Pt adequately taking PO, and creatinine normal - d/c IVF. dvt prophy - ambulatory gi prophy - not indicated code status full anticipate d/c when oral abx determined reviewed plan of care with patient through Kazakh interpretor, no questions or further needs at end of eval.
--- NOTE | 2019-11-28 13:04 | PRG ---
DATE OF SERVICE: 11/28/2019 SUBJECTIVE: The patient feels well. His urine has become more clear. He is not having any pain. He has not had fever. OBJECTIVE: VITAL SIGNS: Most recent temperature 98.2, blood pressure 136/82, pulse 80, saturation 97% on room air. ABDOMEN: Soft, nontender. No palpable masses. Liver and spleen not palpable. No peritoneal signs. LABORATORY DATA: White count 17.2, hemoglobin 13.1, hematocrit 38.8. Chemistry; creatinine 0.86. Microbiology; blood cultures negative to date. Urine culture greater than 100,000 colonies of mixed devon. ASSESSMENT: Left ureteropelvic junction obstruction with associated calculus disease and signs and symptoms consistent with pyelonephritis. Surprisingly, his urine culture did not grow bacteria. Despite this negative result, I do believe he should be treated with antibiotic therapy. Apparently, a consultation with Infectious Disease has been ordered by the admitting team and I will defer antibiotic choice to the Infectious Disease specialist. With regard to the ureteropelvic junction obstruction, this would require surgical management for resolution. Without surgical management, he is likely to have progressive renal dysfunction in the left kidney and recurrent infections. Unfortunately, the patient is unfunded and the surgical therapy may not be performed until he obtains insurance or he comes up with sufficient funds for hospital admission and surgical therapy. In the meantime, he has an indwelling ureteral stent draining the left kidney and has done quite well since placement of the stent. PLAN: Antibiotic therapy as determined by Dr. Horne. It should be noted that his urinary tract infection 1 year ago was resistant to multiple antibiotics including Bactrim, ampicillin, ceftriaxone, gentamicin. From a urologic standpoint, the patient is stable for discharge and we have discussed followup in regard to the stent with the patient. Job ID: [id number]
[2019-11-28 19:40] VITALS: BP 137/82; TEMP 97.5
--- NOTE | 2019-11-28 23:48 | CON ---
DATE OF CONSULTATION: 11/28/2019 REASON FOR CONSULTATION: Obstructive pyelonephritis. HISTORY OF PRESENT ILLNESS: A 29-year-old who has history of nephrolithiasis left side with prior obstruction, treated initially in September 2018. At that time, he had a cluster of large calculi in the posterior aspect of the renal pelvis associated with marked left-sided hydronephrosis in the left UPJ obstruction. A stent was placed and given Rocephin and was discharged on ciprofloxacin and the stent was removed in the outpatient setting. He did not have any further followup until now, but he started having problems about one and a half month ago before this admission when he started noticing pain in the left flank, eventually culminated in hematuria, fever, chills, dysuria, and left flank pain. He was brought to the emergency room and on arrival, his pulse 131, BP 130/90, temperature of 100.7, O2 saturation 97. Subsequently, temp went up to 103.2. He appeared in moderate distress from pain in the left flank. The exam was remarkable for left groin tenderness, otherwise normal. Other findings included a white cell count 20.4, hemoglobin 15, platelets 209 with a normal differential. His creatinine on arrival was 1.39. Bilirubin 1.6. Transaminases normal. Albumin 4.6. Urinalysis greater than 50 wbc's. Final urine culture from this time with greater than 100,000 CFUs of mixed enteric devon was not further identified. Previous culture from September with E coli which was resistant to third generation cephalosporins, but susceptible to quinolones. The same organism was retrieved from three samples from October 02, 2018. Blood cultures thus far negative at 48 hours. Currently, Mr. Sloan is feeling better, little bit of pain in the left flank, but no headaches. No vomiting. No respiratory symptoms. No back pain. No dysuria. Dr. Donahue placed a stent again. PAST MEDICAL HISTORY: Includes obesity, nephrolithiasis left side with hydronephrosis, UPJ stenosis, stenting left side which have been removed. ALLERGIES: NONE. SOCIAL HISTORY: Never smoker. . Four kids. Lives in the area. He works with construction most of the time. No alcoholic beverages or drug use. FAMILY HISTORY: Noncontributory. No history of nephrolithiasis in the family. PHYSICAL EXAMINATION: VITAL SIGNS: T-max 98.3, blood pressure 150/97, pulse 75, respirations 16, and O2 saturation 100. SKIN: Peripheral IV access, voiding without difficulty in the toilet. No lymphadenopathy. HEENT: Normal. NECK: Supple. LUNGS: Symmetric clear breath sounds. HEART: Normal. ABDOMEN: Mild left flank tenderness. Otherwise, abdominal examination normal. GENITAL: Normal. No lymphadenopathy. No edema. Pulses 1+ in dorsalis pedis. Moves extremities equally. Cognitive function appears to be intact. White cell count is at 17, hemoglobin 13, platelets 212 with normal differential. Sodium 139, creatinine 0.86. ASSESSMENT: Nephrolithiasis, left side, UPJ stenosis. The current sample organism has not yet been identified. We will call the lab and see if we can further identify with susceptibility testing in the organisms. Even if that is not feasible, we will be able to discharge him on oral ciprofloxacin for a period of time probably at least 2 weeks until there is removal of this stent in about 2 weeks. The patient's stone burden seems to be a bit bigger than previously. The patient does have possible or likely UPJ junction stenosis and he may down the road require intervention to relieve this stenosis and associated lithotripsy. Job ID: [id number] [facility]
--- NOTE | 2019-11-29 03:27 | DIS ---
DATE OF ADMISSION: 11/26/2019 DATE OF DISCHARGE: 11/28/2019 CONSULTANTS: 1. Dr. Horne of Infectious Disease. 2. Dr. Donahue of Urology. MEDICATIONS AT DISCHARGE: 1. Tylenol 500 mg one tablet every 4 hours as needed for pain. 2. Ciprofloxacin 500 mg p.o. b.i.d. for four weeks, prescribed 56 tablets. This was sent electronically to [facility] in [place]. FINAL DIAGNOSES: 1. Sepsis secondary to pyelonephritis. 2. Pyelonephritis. 3. Severe hydronephrosis secondary to ureteropelvic junction obstruction from renal calculus, now status post stent. 4. Urethral stricture, status post dilation. 5. Acute kidney injury, resolved. HISTORY OF PRESENT ILLNESS: Mr. Sloan is a 29-year-old male, who presented to the emergency room with a complaint of left flank pain, fevers, chills, and hematuria. His symptoms were similar to a prior presentation in September 2018, secondary to the UPJ obstruction, bacteremia, pyelonephritis secondary to multi- drug resistant E coli. Because of the history, finding of severe hydronephrosis and sepsis, the patient was started on broad-spectrum antibiotics with meropenem and vancomycin, and hospitalist called for admission. HOSPITAL COURSE: The patient was evaluated by Dr. Donahue of Urology and underwent stent placement in the left ureter as well as urethral dilation for urethral meatal stenosis. The patient was found to have renal calculus, which will need to be treated in the outpatient setting. With the stent in place, the hydronephrosis was relieved. The stents will be re-evaluated in the outpatient setting as well as treatment for the renal calculus. The patient was continued on vancomycin and meropenem. The urine culture resulted today is mixed enteric devon. With a history of multi-drug resistant E coli and bacteremia last year, as well as the diagnosis of pyelonephritis now without a urine culture to direct antibiotics, Dr. Horne of Infectious Disease was consulted. He recommends a 4-week course of the ciprofloxacin, which has been prescribed. The patient will need followup in [address] Horne and follow up sooner than that with Dr. Donahue in the Urology office. The patient's pain is minimal, he is voiding without difficulty, he is not requiring any pain medication, he is taking p.o., and he meets criteria for discharge to home. The acute kidney injury resolved with stent placement as well as IV fluid hydration, and his creatinine at discharge is normal. PHYSICAL EXAMINATION: VITAL SIGNS: On day of discharge, please see the note on the chart. RIOS FINDINGS AND TEST RESULTS: CBC today, 17.2, 13.1, 38.8, 212 with 71% neutrophils. Of note on November 25, white blood cell count was 20.4. Renal panel today, 139, 3.7, 109, 23, 15, 0.86, 97. On admission, creatinine was 1.39. T-bili 1.6, AST 21, ALT 43, alkaline phosphatase 48, total protein 9, and albumin 4.6. Urinalysis on admission; present protein, 500 leukocyte esterase, greater than 50 red blood cells and white blood cells with 4+ bacteria. Urine culture shows three different gram-negative rods, all greater than 100,000 with ID and susceptibility requested by Dr. Horne, prior to that request, the result was mixed enteric devon. Blood cultures from November 25, no growth at [address] of abdomen and pelvis on November 25, shows stable severe left-sided hydronephrosis with abrupt caliber change at the left UPJ, no evidence of associated calculus or mass. Chest x-ray, November 25 is negative for any acute cardiopulmonary process. DIET: Regular. ACTIVITY: As tolerated. FOLLOWUP: As noted above. DISCHARGE DISPOSITION: Home. The patient is aware of the discharge instructions, as discussed with Dr. Horne , in addition the nursing staff instructed him on medications, the importance of followup, and seek care precautions. TIME SPENT: Total time coordinating discharge is 30 minutes. CODE STATUS: Full. Job ID: [id number] MTDD
--- NOTE | 2019-12-01 05:42 | PQF ---
Michael Sloan DENA [id number] CLINICAL DOCUMENTATION CLARIFICATION FORM: POST DISCHARGE Addendum to original discharge summary date: ____ Late entry note date: __ DATE:12/01/2019 ATTN: Candice Zambrano Please exercise your independent, professional judgment in responding to the clarification form. Clinical indicators are provided on the bottom of this form for your review Please check appropriate box(s): [ ] Pyelonephritis is a Postoperative Infection following removal of stent [ ] Pyelonephritis is not a Postoperative Infection following removal of stent [ ] Other diagnosis [ XX ] Unable to determine - the patient had a similar problem in September 2018, and no problems that I could see until the most recent presentation. The pyelonephritis that I found in the H&P was referring to 2018 - not 2019. CLINICAL INDICATORS - SIGNS / SYMPTOMS / LABS Urinalysis 11/25 Extra turbid, pH 6.0, gravity 1.020, Protein 200, Bacteria 4+ A Urine H&P p1 11/25 Culture 11/15 Positive with Escherichia Coli H&P 11/25 Dr Escoto presented for left flank pain, fever, chills and blood in urine H&P p1 11/25 Dr Escoto Pt has similar presentation in beginning of September, then he was placed stent and treated. Stent was removed H&P p1 11/25 Dr Palacios ED, borderline hypotensive, tachypneic, urinalysis c/w UTI H&P p4 11/25 Dr Palacios Sepsis due to complicated UTI RISK FACTORS H&P p1 11/25 s/p stent removal on September H&P p2 11/25 Renal calculi H&P p4 11/25 Sepsis H&P p4 11/25 Hydronephrosis Discharge summary p1 11/27 - Pyelonephritis Discharge summary p1 11/27 WESLEY Discharge summary p1 11/27 Urethral stricture Consult p1 11/27 Obesity TREATMENT: SEP 29 IV Rocephin 2gm SEP 29 IV Meropenem 1gm SEP 29 IV Vancomycin 2gm SEP 29 IVF NS 1L SEP 30 Levaquin 750 mg oral Urine Culture 11/25 Operative report 11/25 Cystoscopy with Stent placement ID consult 11/27 Darrisu Chowdhury (This form is maintained as a part of the permanent medical record) 2014 [employer] All Rights Reserved [email or web address]
== END 2019-11-28 20:40 | disposition home or self-care (01) | DRG 854 ==
LOC: ERS 11:39 → SDC/OP 16:55 → SURG A 19:32
PROVIDERS: ADMIT Internal Medicine; ATTEND Internal Medicine
PROC: 0T778DZ Dilation of Left Ureter with Intraluminal Device, Via Natural or Artificial Opening Endoscopic (ICD-10-PCS; principal; 2019-11-26)
PROC: 0T7D8ZZ Dilation of Urethra, Via Natural or Artificial Opening Endoscopic (ICD-10-PCS; 2019-11-26)
DX: A41.51 Sepsis due to Escherichia coli [E. coli] (principal); N13.6 Pyonephrosis; N17.9 Acute kidney failure, unspecified; Z16.24 Resistance to multiple antibiotics; N35.919 Unspecified urethral stricture, male, unspecified site; N47.1 Phimosis; E66.9 Obesity, unspecified; Z87.440 Personal history of urinary (tract) infections; Z87.442 Personal history of urinary calculi; Z68.35 Body mass index [BMI] 35.0-35.9, adult
CPT/HCPCS: 36415; 71045; 74176; 76000; 80048; 80053; 81003; 81015; 83605; 85025; 87040; 87077; 87086; 87186; 96361; 96365; 96366; 96375; C1758; C1769; J0696; J1100; J1885; J2001; J2185; J2250; J2405; J2704; J2765; J3010; J3370; J7030